=== PATIENT | female | born 1940 | race Caucasian/White ===

== ENCOUNTER 2019-09-30 23:34 | Inpatient (IN) | payer MEDICARE, MEDICAID ==
[~2019-09-30] VITALS: Ht 162.6 cm; Wt 80.6 kg
[2019-10-01] VITALS (443 sets, daily range): BP systolic 103–149; BP diastolic 48–88; PULSE 92–140; TEMP 98.1–98.9; O2SAT 78–100
--- NOTE | 2019-10-01 00:30 | NUR ---
Pt arrived to room 314 at this time. Transferred per stretcher by [facility]. Pt presents c ataxic movements, respons only to painful stimuli, no verbal respons to staff or family. Da/FATOU Christina at bedside. Da oriented to room, unit policies et current POC. Questions invited et answered, verbalized understanding. INT patent. VSS. O2 per NC. Will place tele. Pt/da s further needs at this time. Call light in reach, bed alarm on. Will continue to monitor.
[2019-10-01] MEDS ORDERED: ZYRTEC5 MG PO (02:30)
[2019-10-01] MEDS ORDERED: NOVOLOG MIX 70/33 ML SQ (02:33)
[2019-10-01] MEDS ORDERED: SYNTHROID0.075 MG/T PO (03:18)
[2019-10-01] MEDS ORDERED: KLOR-CON M2020 MEQ PO (03:19)
[2019-10-01] MEDS ORDERED: LASIX 40MG TABL40 MG PO (03:20)
[2019-10-01] MEDS ORDERED: TRADJENTA5 MG PO (03:20)
[2019-10-01] MEDS ORDERED: ELIQUIS 5MG PO (03:20)
[2019-10-01] MEDS ORDERED: ATIVAN 0.50.5 MG/TAB PO (03:21)
[2019-10-01] MEDS ORDERED: RESTORIL 77.5 MG/CAP PO (03:22)
[2019-10-01] MEDS ORDERED: LIPITOR20 MG PO (03:22)
[2019-10-01] MEDS ORDERED: SINEMET 25/101 UDTAB PO (03:23)
[2019-10-01] MEDS ORDERED: NAMENDA XR 28MG PO (03:24)
[2019-10-01] MEDS ORDERED: PRINIVIL40 MG PO (03:25)
[2019-10-01] MEDS ORDERED: NORCO 325 MG-51 TAB PO (03:25)
[2019-10-01] MEDS ORDERED: TOPROL XL 50MG50 MG PO (03:26)
[2019-10-01] MEDS ORDERED: RT ADVAIR HFA 1112 G IH (03:29)
[2019-10-01] MEDS ORDERED: BACTRIM DS 8001 TAB PO (03:30)
[2019-10-01 06:31] LABS: BASO % 0.5 % (0.0-2.0); EOS # 0.2 (0.0-0.7); EOS % 2.5 % (0-4.0); GRAN # 4.3 (1.4-6.5); HEMATOCRIT 38.5 % (37.0-47.0); HEMOGLOBIN 11.6 g/dl (12.5-16.0); LYMPH # 1.2 (1.2-3.4); LYMPH % 18.4 % (20.0-51.0); MEAN CELL VOLUME 101 fl (80.0-100.0); MEAN CORPUSCULAR HEMOGLOBIN 30 pg (27.0-31.0); MEAN CORPUSCULAR HGB CONC 30 g/dl (33.0-37.0); MEAN PLATELET VOLUME 10.8 fl (7.4-10.4); MONO # 0.6 (0.1-0.6); MONO % 10.1 % (1.7-9.3); PLATELET COUNT 206 K/mm3 (130-400); RED BLOOD COUNT 3.82 M/mm3 (4.10-5.30); REDCELL DISTRIBUTION WIDTH-CV 13.5 % (11.5-14.5)
[2019-10-01 06:52] LABS: CALCIUM 8.9 mg/dL (8.4-10.2); CREATININE, serum 1.22 (0.52-1.25)
--- NOTE | 2019-10-01 08:56 | NUR ---
Patient asleep in bed during assessent. She is unresponsive to verbal commands. Movements are involuntary and in response to being touched. Respirationg are irregular but no shortness of breath or apnea is evident. Both daughters are at the bedside, stating that this is not a normal state for her. No further needs were expressed from the faily or patient. Call light is within reach.
--- NOTE | 2019-10-01 09:25 | NUR ---
Athletic Coordinator attended clinical rounds with the team. Patient to move down to IMCU.
[2019-10-01 10:44] LABS: MUCOUS Present /lpf; PH 6 (5-8); URINE APPEARANCE Hazy; URINE BACTERIA Occasional /hpf; URINE BILIRUBIN Negative (NEGATIVE); URINE BLOOD Negative (NEGATIVE); URINE COLOR Yellow; URINE GLUCOSE 1+ (NEGATIVE); URINE KETONE Negative (NEGATIVE); URINE LEUKOCYTE ESTERASE 2+ (NEGATIVE); URINE NITRATE Positive (NEGATIVE); URINE PROTEIN(semi-quant) 1+ (NEGATIVE); URINE RBC 0-2 /hpf; URINE UROBILINOGEN Negative (NEGATIVE)
--- NOTE | 2019-10-01 10:50 | NUR ---
Pt received in ICU room 2 via bed. Connected to oil well service operator helper. Afib c occasional paced beats. Serial BP q30min 122/89 on arrival SPO2 100% on 2L NC. Opens eyes to voice. Left eye deviated laterally. Pt states this is baseline. Making frequent small movements with arms and legs. No fasciculation. All extremeties move equally. No facial droop. Drowsy. Falls to sleep rapidly and snores in between questions. Oriented to self only. FSBS 99. Daughters in room updating staff.
--- NOTE | 2019-10-01 11:14 | NUR ---
Patient transfered to ICU at this time. New 22g INT to left forarm was placed. Urinalysis sample obtained via straight catheterization, approx 50ml of urine were drained, full wet brief was removed at this time, new one applied. Initiation of D 50 fluids at 75 mls/hr was started prior to transfer. All belongings were transferred with patient, daughters were notified. Report was given to Jessica.
[2019-10-01 12:48] LABS: COLLECTION METHOD CLEAN CATCH
--- NOTE | 2019-10-01 14:30 | NUR ---
Returned from chemistry laboratory technician, R groin site soft, no drainage, updated, flat time discussed. VSS. Pt sleeping between conversation with staff.
--- NOTE | 2019-10-01 20:00 | NUR ---
PT AWAKE, ALERT AND ORIENTED X2, EASY TO REDIRECT, DENIES ANY PAIN OR DISCOMFORT. PT GIVEN SOME JELLO, PUDDING, CRACKERS AND WATER, PT ABLE TO SWALOOW AND DRINK JUST FINE. DAUGHTER RYAN AT BEDSIDE, ALL QUESTIONS ANSWERED. PT INCONTINENT OF URINE, DIAPER CHANGED AT THIS TIME. VSS. WILL CONTNUE TO MONITOR.
[2019-10-02] VITALS (906 sets, daily range): BP systolic 93–115; BP diastolic 55–91; PULSE 77–119; TEMP 97.8–98.9; O2SAT 75–100
[2019-10-02 07:19] LABS: BASO % 0.4 % (0.0-2.0); EOS # 0.3 (0.0-0.7); EOS % 4.8 % (0-4.0); GRAN # 3.9 (1.4-6.5); GRAN % 68.2 % (42.2-75.2); HEMATOCRIT 40.2 % (37.0-47.0); HEMOGLOBIN 12.4 g/dl (12.5-16.0); LYMPH % 17.1 % (20.0-51.0); MEAN CELL VOLUME 101 fl (80.0-100.0); MEAN CORPUSCULAR HEMOGLOBIN 31 pg (27.0-31.0); MEAN CORPUSCULAR HGB CONC 31 g/dl (33.0-37.0); MEAN PLATELET VOLUME 11.4 fl (7.4-10.4); MONO # 0.5 (0.1-0.6); MONO % 9.1 % (1.7-9.3); PLATELET COUNT 198 K/mm3 (130-400); RED BLOOD COUNT 3.97 M/mm3 (4.10-5.30); REDCELL DISTRIBUTION WIDTH-CV 13.2 % (11.5-14.5)
--- NOTE | 2019-10-02 07:20 | NUR ---
Report received from Shala KEENAN and care resumed.
[2019-10-02 07:23] LABS: CALCIUM 8.8 mg/dL (8.4-10.2); CREATININE, serum 1.19 (0.52-1.25); POTASSIUM 4.3 mmol/L (3.4-5.0)
--- NOTE | 2019-10-02 10:10 | NUR ---
Dr Love in to see pt at this time.
--- NOTE | 2019-10-02 10:42 | NUR ---
ARBOREAL SCIENTIST student met with the patient and the patient's daughter, Carri to complete intial intake. Due to the patient's confusion, Carri addressed assessment questions. The patient lives in [place] with her son, Nathan Bernard. The patient has a walker and has an aide from [facility] to assist with showers. The patient's PCP is Dr. Verma and patient receives medications from [facility] in . Carri reports she picks up medications for the patient and the patient's insurance covers all her medications. The patient does not have advanced directives in the EMR. However, Carri reports she is designated and will provide copy of DPOA-HC. medical staff services coordinator will continue to follow to ensure a safe discharge.
--- NOTE | 2019-10-02 13:53 | NUR ---
Report given to Jake KEENAN and care transfered.
--- NOTE | 2019-10-02 14:31 | NUR ---
The patient's daughter, Carri provided copy of DPOA- paperwork, copy was placed in the chart.
--- NOTE | 2019-10-02 19:45 | NUR ---
Assessment complete; patient able to follow simple commands but not oriented to place or time. Daughter at bedside. All questions and concerns addressed at this time.
[2019-10-03] VITALS (556 sets, daily range): BP systolic 135–183; BP diastolic 56–110; PULSE 71–110; TEMP 97.3–98.7; O2SAT 76–100
--- NOTE | 2019-10-03 02:45 | NUR ---
Patient became restless in bed and pulled out IV. IV replaced in left wrist. Gave bed bath and assisted with repositioning. Patient reported being "comfortable". Patient calm and resting in bed a this time. Will continue to monitor.
--- NOTE | 2019-10-03 07:05 | NUR ---
Report given to SHLOMO Cano. Patient care transfered.
--- NOTE | 2019-10-03 07:15 | NUR ---
Report received from Emili KEENAN and care resumed.
[2019-10-03 07:36] LABS: BASO % 0.3 % (0.0-2.0); EOS # 0.4 (0.0-0.7); EOS % 6.3 % (0-4.0); GRAN # 4.3 (1.4-6.5); GRAN % 68.6 % (42.2-75.2); HEMATOCRIT 41.8 % (37.0-47.0); HEMOGLOBIN 13.2 g/dl (12.5-16.0); MEAN CELL VOLUME 98 fl (80.0-100.0); MEAN CORPUSCULAR HEMOGLOBIN 31 pg (27.0-31.0); MEAN CORPUSCULAR HGB CONC 32 g/dl (33.0-37.0); MEAN PLATELET VOLUME 10.9 fl (7.4-10.4); MONO # 0.5 (0.1-0.6); MONO % 8.3 % (1.7-9.3); PLATELET COUNT 222 K/mm3 (130-400); RED BLOOD COUNT 4.28 M/mm3 (4.10-5.30); REDCELL DISTRIBUTION WIDTH-CV 13.4 % (11.5-14.5)
[2019-10-03 07:46] LABS: ALBUMIN 3.4 gm/dL (3.5-5.0); BILIRUBIN,TOTAL 0.7 mg/dL (0.0-1.0); CALCIUM 8.8 mg/dL (8.4-10.2); CREATININE, serum 0.93 (0.52-1.25); POTASSIUM 3.8 mmol/L (3.4-5.0); TOTAL PROTEIN 6.4 gm/dL (6.4-8.2)
--- NOTE | 2019-10-03 08:56 | NUR ---
Assessment complete. Pt sleeping but wakes up and answers simple questions. Does still have baseline confusion. AM meds given. Pt had breakfast and tolerated well. BS stable. Will continue to follow.
--- NOTE | 2019-10-03 09:51 | NUR ---
Initial visit; Patient thanked Psychology Fellow for looking in on her and offering spiritual care.
--- NOTE | 2019-10-03 10:30 | NUR ---
Dr Cade in to see pt at this time. Will plan to transfer to floor while working on placement ro rehab. Will continue to follow.
--- NOTE | 2019-10-03 10:45 | NUR ---
textile worker met with patient and Carri colvin (durable power of personal injury attorney for health care) and discussed options for rehabilitation upon discharge. Carri verbalized agreement with suggestions that rehab would be best option upon discharge to gain strength before returning home, where she resides with her son. Worker provided written copy of Medicare.gov fpc option list and Carri chose 1. [facility] and 2. [facility]. Worker provided contact numbers to above facilities for Carri to take a tour and gave referrals. Will await screening from facilities. Discharge may be on 10/04/19. Patient is agreeable with discharge planning. Choice form is completed for nursing facilities.
--- NOTE | 2019-10-03 13:10 | NUR ---
Cindy with [facility] confirms that they can accept patient to skilled care upon discharge. Worker contacted Destiney, with [facility] (case operator with [facility]) and and Ankur with [facility] and advised that plan is transfer to [facility] for skilled care upon discharge. Worker contacted daughter, Carri, and advised of the above information and that [facility] can accept patient upon discharge. Carri will take a tour of [facility] now.
--- NOTE | 2019-10-03 14:14 | NUR ---
Report called to [place] RN and pt transfered to room 358 per wheelchair with chart and belongins.
--- NOTE | 2019-10-03 18:40 | NUR ---
Pt resting in the room since arriving on the floor from the ICU, no C/O pain since arriving.
--- NOTE | 2019-10-04 00:38 | NUR ---
Patient up to the bathroom at beginning of shift. Daughter at bedside. 1A with walker. Noted to have some discomfort in ambulating to the restroom. Subsided after patient was in bed. Noted to be slow and need cueing frequently. Daughter states this is baseline. Bed alarm on and family educated on safety practices. Denies any further needs. Will continue to monitor.
[2019-10-04 05:08] VITALS: BP 153/94; PULSE 102; TEMP 98.5
[2019-10-04 07:40] VITALS: BP 170/86; PULSE 83; TEMP 97.7
[2019-10-04 08:12] LABS: BASO % 0.3 % (0.0-2.0); EOS # 0.4 (0.0-0.7); EOS % 5.8 % (0-4.0); GRAN # 4.2 (1.4-6.5); GRAN % 69.7 % (42.2-75.2); HEMATOCRIT 40.9 % (37.0-47.0); HEMOGLOBIN 12.9 g/dl (12.5-16.0); LYMPH # 0.9 (1.2-3.4); LYMPH % 14.5 % (20.0-51.0); MEAN CELL VOLUME 99 fl (80.0-100.0); MEAN CORPUSCULAR HEMOGLOBIN 31 pg (27.0-31.0); MEAN CORPUSCULAR HGB CONC 32 g/dl (33.0-37.0); MEAN PLATELET VOLUME 11.2 fl (7.4-10.4); MONO # 0.6 (0.1-0.6); MONO % 9.2 % (1.7-9.3); PLATELET COUNT 210 K/mm3 (130-400); RED BLOOD COUNT 4.15 M/mm3 (4.10-5.30); REDCELL DISTRIBUTION WIDTH-CV 13.3 % (11.5-14.5)
[2019-10-04 08:21] LABS: CALCIUM 8.8 mg/dL (8.4-10.2); CREATININE, serum 0.9 (0.52-1.25); POTASSIUM 3.7 mmol/L (3.4-5.0)
[2019-10-04] MEDS ORDERED: CIPRO 500MG TA500 MG PO (10:33)
[2019-10-04] MEDS ORDERED: TOPROL XL 25MG25 MG PO (10:34)
[2019-10-04] MEDS ORDERED: LANOXIN 0.120.125 MG PO (10:34)
[2019-10-04] MEDS ORDERED: MELATONIN5 M1 SL (10:45)
[2019-10-04 10:59] VITALS: BP 165/87; PULSE 57; TEMP 98
--- NOTE | 2019-10-04 12:53 | NUR ---
Wound Specialist attended clinical rounds with the team and patient to discharge to [facility] today. SW coordinated with Cindy from [facility] to establish transportation for 1400. SW also faxed updates. LEA met with patient and patient's daughter, Carri to review discharge plan and transport time. Patient sleeping during this meeting. LEA presented IM form to patient's daughterCarri who reviewed and provided signature. LEA placed IM form on chart and provided copy to Carri. LEA updated RNNimo on transport time and faxed discharge orders to Cindy at [facility].
--- NOTE | 2019-10-04 19:50 | NUR ---
PT DISCHARGED TO LTC. IV AND ALLI REMOVED WITHOUT ISSUE. FAMILY AT BEDSIDE. LTC FACILITY MEMBER HERE TO ESCORT CIRA.
== END 2019-10-04 14:15 | DRG 280 ==
LOC: MEDICAL 23:34 → ICU 10-01 00:20 → MEDICAL 10-03 14:13
PROVIDERS: Physician Assistant; ADMIT Internal Medicine
DX: T82.191A Other mechanical complication of cardiac pulse generator (battery), initial encounter (principal); I21.4 Non-ST elevation (NSTEMI) myocardial infarction; J96.01 Acute respiratory failure with hypoxia; I50.30 Unspecified diastolic (congestive) heart failure; N39.0 Urinary tract infection, site not specified; I48.91 Unspecified atrial fibrillation; E78.5 Hyperlipidemia, unspecified; E03.9 Hypothyroidism, unspecified; G20 Parkinson's disease; F02.80 Dementia in other diseases classified elsewhere, unspecified severity, without behavioral disturbance, psychotic disturbance, mood disturbance, and anxiety; G47.00 Insomnia, unspecified; J44.9 Chronic obstructive pulmonary disease, unspecified; I11.0 Hypertensive heart disease with heart failure; E11.649 Type 2 diabetes mellitus with hypoglycemia without coma; I27.20 Pulmonary hypertension, unspecified; I08.3 Combined rheumatic disorders of mitral, aortic and tricuspid valves; E11.51 Type 2 diabetes mellitus with diabetic peripheral angiopathy without gangrene; Z86.73 Personal history of transient ischemic attack (TIA), and cerebral infarction without residual deficits; Z95.0 Presence of cardiac pacemaker; Z79.4 Long term (current) use of insulin; Z79.51 Long term (current) use of inhaled steroids; Z79.01 Long term (current) use of anticoagulants; Z87.891 Personal history of nicotine dependence; Z88.8 Allergy status to other drugs, medicaments and biological substances; Z88.0 Allergy status to penicillin; Z88.1 Allergy status to other antibiotic agents; Z87.440 Personal history of urinary (tract) infections
CPT/HCPCS: 99223-AI; 99233-AI; 99239; A4216; J0696; J1815